=== PATIENT | female | born 1990 | race Caucasian/White ===

== ENCOUNTER 2019-12-04 02:12 | Emergency (ER) | payer SELFPAY ==
[~2019-12-04] VITALS: Ht 154.9 cm; Wt 52.2 kg
[2019-12-04 02:12] VITALS: BP_SYST 135
[2019-12-04 03:15] VITALS: BP_SYST 135
[2019-12-04] MEDS ORDERED: LEVO100T9 PO (03:22)
== END 2019-12-04 03:15 ==
LOC: SED 02:12
DX: Z02.89 Encounter for other administrative examinations (principal)
CPT/HCPCS: 99283; 99285